=== PATIENT | female | born 2000 | race Caucasian/White ===

== ENCOUNTER 2025-01-22 21:04 | Emergency (ER) | payer SELFPAY ==
[~2025-01-22] VITALS: Ht 154.9 cm; Wt 82.0 kg
[2025-01-22 21:32] VITALS: O2SAT 100
[2025-01-23] MEDS: DEXAMETHASONE 10 MG/ML VIAL IM ONE (00:22)
[2025-01-23] MEDS ORDERED: BENZ1LOZ73 MM (00:44)
[2025-01-23] MEDS ORDERED: BENZ200C52 MT (00:44)
[2025-01-23] MEDS ORDERED: GUAI-450 MT (00:44)
[2025-01-23] MEDS ORDERED: IBUP-1455 MT (00:44)
[2025-01-23 01:21] VITALS: BP 120/62; PULSE 87; RESP 18; TEMP 37; O2SAT 98
== END 2025-01-23 01:25 | disposition home or self-care (01) ==
LOC: ER 21:04
DX: J02.8 Acute pharyngitis due to other specified organisms (principal); B97.89 Other viral agents as the cause of diseases classified elsewhere; R07.89 Other chest pain; F12.90 Cannabis use, unspecified, uncomplicated
CPT/HCPCS: 99283; 71045; 81025; 93005; 96372; J1100

== ENCOUNTER 2025-02-07 23:10 | Emergency (ER) | payer MEDICAID ==
[~2025-02-07] VITALS: Ht 162.6 cm; Wt 84.0 kg
[~2025-02-07 23:10] MED LIST: BENZ1LOZ73 MM; BENZ200C52 MT; GUAI-450 MT; IBUP-1455 MT
[2025-02-08 00:13] VITALS: TEMP 37; O2SAT 97
[2025-02-08] MEDS: IBUPROFEN 600MG TABLET PO ONE (00:32)
[2025-02-08] MEDS ORDERED: IBUP-1455 MT (00:56)
[2025-02-08 01:15] VITALS: BP 127/80; PULSE 80; RESP 18; O2SAT 98
== END 2025-02-08 01:21 | disposition home or self-care (01) ==
LOC: ER 23:10
DX: S90.31XA Contusion of right foot, initial encounter (principal); W20.8XXA Other cause of strike by thrown, projected or falling object, initial encounter; Y93.89 Activity, other specified; Y92.89 Other specified places as the place of occurrence of the external cause; Y99.0 Civilian activity done for income or pay
CPT/HCPCS: 73630; 99283

== ENCOUNTER 2025-02-13 02:05 | Emergency (ER) | payer MEDICAID ==
[~2025-02-13] VITALS: Ht 152.4 cm; Wt 82.0 kg
[2025-02-13 02:15] VITALS: TEMP 37.1; O2SAT 100
[2025-02-13] MEDS: KETOROLAC 15MG/ML VIAL IM ONE (03:36)
[2025-02-13] MEDS ORDERED: LIDO-53 TP (04:22)
[2025-02-13 04:36] VITALS: BP 105/77; PULSE 74; RESP 14; O2SAT 98
[2025-02-13] MEDS ORDERED: TERB250T88 MT (05:30)
== END 2025-02-13 04:38 | disposition home or self-care (01) ==
LOC: ER 02:05
DX: B35.1 Tinea unguium (principal); M79.675 Pain in left toe(s); W20.8XXA Other cause of strike by thrown, projected or falling object, initial encounter; Y93.89 Activity, other specified; Y92.89 Other specified places as the place of occurrence of the external cause; Y99.8 Other external cause status
CPT/HCPCS: 99283; 81025; 73630; 96372; J1885